=== PATIENT | male | born 1955 | race Caucasian/White ===

== ENCOUNTER 2020-07-10 15:45 | Emergency (ER) | payer OTHER, SELFPAY ==
--- NOTE | ~2020-07-10 | CT_ITS ---
EXAMINATION: CT ABDOMEN AND PELVIS WITHOUT CONTRAST CLINICAL INFORMATION: Left low back and flank pain with question of compression fracture COMPARISON: Chest radiograph 12/05/2006 TECHNIQUE: Multidetector volumetric imaging was performed from the superior aspect of the liver through the pubic symphysis. Sagittal and coronal reformatted images were obtained on the technologist's workstation. This CT examination was performed using dose optimization techniques as appropriate, variously including the following: *Automated exposure control *Adjustment of mA and/or kV according to patient size (this includes techniques or standardized protocols for targeted exams where dose is matched to indication/reason for exam; i.e. extremities or head) *Use of iterative reconstruction technique DLP: 609 mGy-cm FINDINGS: LUNG BASES: The visualized lung bases are unremarkable. LIVER, GALLBLADDER, AND BILIARY TREE: The liver is normal in size, shape, and attenuation. No focal hepatic lesion or biliary ductal dilatation is present. The gallbladder is unremarkable with no evidence of radiopaque gallstones, gallbladder wall thickening, or obvious pericholecystic inflammatory changes. PANCREAS: Unremarkable. SPLEEN: Unremarkable. ADRENAL GLANDS: Unremarkable. KIDNEYS AND URETERS: The kidneys are normal in size, shape, and attenuation. No hydronephrosis, hydroureter, or calculi seen. No perinephric stranding. BLADDER: Unremarkable. GASTROINTESTINAL TRACT: Sigmoid diverticula without diverticulitis. The small and large bowel are otherwise unremarkable. The appendix is unremarkable. ABDOMINAL WALL: No significant hernia is appreciated. LYMPH NODES: No retroperitoneal lymphadenopathy. VASCULAR: Some minimal calcific plaque present in the aorta and iliac vessels without aneurysm. PELVIC VISCERA: Prostate and seminal vesicles are unremarkable. OSSEOUS STRUCTURES: Degenerative changes are present in the spine. Schmorl's nodes are present on the inferior endplate of L2, the superior endplate of L3, and the inferior endplates of L4 and L5. No acute fractures are seen. No chronic compression fractures are seen. Degenerative changes are most marked at L4-L5. CT/CT abdomen pelvis wo con IMPRESSION: 1. Degenerative changes present in the spine as described above. No acute fractures. 2. Incidental note made of sigmoid diverticula and other findings described above.
[2020-07-10 15:50] VITALS: BP 170/80; PULSE 60; O2SAT 97
[2020-07-10 15:58] VITALS: BP 170/79; PULSE 60; RESP 16; TEMP 36.6; O2SAT 97; BMI 26.4
--- NOTE | 2020-07-10 16:05 | ED_ITS ---
HPI - Back Pain/Injury General Chief Complaint: Back Pain/Injury Stated Complaint: back spasms Time Seen by Provider: 07/10/20 16:05 History of Present Illness HPI Narrative: Patient complains of left-sided low back pain shooting down into his toes intermittently which started yesterday and got much worse today, he has had episodes of sciatica in the past but this is more severe he recalls no recent injury, no numbness or weakness no changes to bowel or bladder no chest pain no abdominal pain no fall Related Data Previous Rx's Medication Instructions Recorded cyclobenzaprine 10 mg PO TID PRN #20 tab 07/10/20 ibuprofen 600 mg PO Q6H PRN #20 tab 07/10/20 oxycodone 5 mg PO Q6H PRN #20 cap 07/10/20 prednisone 60 mg PO DAILY 4 Days #12 tab 07/10/20 Allergies Allergy/AdvReac Type Severity Reaction Status Date / Time No Known Allergies Allergy Unverified 12/27/19 15:17 Review of Systems Review of Systems: Positive for left-sided back pain radiating to left toes Negatives are no fever no chills no dizziness no weakness no numbness no loss of sensation no changes to bowel or bladder no injury, no headache no neck pain no chest pain no abdominal pain no nausea or vomiting no dysuria no frequency no incontinence no skin rash Yes all other systems are reviewed and are negative FOR[facility]LY [facility] Past Medical History Source: nursing notes reviewed Medical History (Updated 07/11/20 @ 00:01 by Anibal Barbosa) Chronic back pain HTN (hypertension) Social History Social History Smoking Status: Current some day smoker Smoked in Last 30 Days: Yes Use of substances other than those prescribed or required for medical reasons: No Advance Directives: No Advance Directives Information Provided: No Physical Exam Vital Signs: Vital Signs: Last Vital Signs Temp 97.9 F 07/10/20 15:58 Pulse 60 07/10/20 15:58 Resp 16 07/10/20 15:58 BP 170/79 H 07/10/20 15:58 Pulse Ox 97 07/10/20 15:58 Body Mass Index 26.4 Uncomfortable appearing but no acute distress A&O x3, and cooperative Head is normocephalic atraumatic Neck is supple and nontender The chest is clear to auscultation bilaterally, no chest wall tenderness The heart rate minute regular no murmur Abdomen soft nontender Extremities full range of motion x4 Skin no rashes Neuro no focal weakness no focal sensory deficit, gait is normal can walk on toes can walk on heels can not squat, balance is normal, speech and comprehension are normal Course Course Course Narrative: Patient with a sciatica attack that is similar to many prior but more painful than normal but with no neurologic deficit is treated with analgesic, improved and is discharged with analgesics medication to follow with his doctor As he has not had any imaging and his pain was more severe than normal I did a CT abdomen and pelvis to rule out mass, aortic enlargement, compression fracture , kidney stones and there were no acute abnormalities in the scan and patient will follow with his primary doctor Discharge Plan Discharge Clinical Impression: Sciatica Patient Disposition: Home, Self-Care Additional Instructions: We treated you with muscle relaxer and pain medicine at with some improvement The goal is to reduce discomfort enough that you can function and do light activity You can supplement the pain medicines with [id number] Tylenol take 2 extra-strength Tylenol 3 times a day, use Motrin as your baseline with the Tylenol because they are not sedating If needed take the oxycodone and Flexeril which will make you sleepy If needed you could take up to 3 oxycodone, 15 mg every 6 hours We started prednisone which in many cases helps reduce inflammation around the nerve and after 24 hours may reduce pain Follow with primary doctor for physical therapy, massage is often helpful Return any time any worse condition, especially if you develop any muscle weakness or incontinence Prescriptions: New oxycodone 5 mg capsule 5 mg PO Q6H PRN (Reason: pain) Qty: 20 RF: 0 cyclobenzaprine 5 mg tablet 10 mg PO TID PRN (Reason: muscle spasm) Qty: 20 RF: 0 prednisone 20 mg tablet 60 mg PO DAILY 4 Days Qty: 12 RF: 0 ibuprofen 600 mg tablet 600 mg PO Q6H PRN (Reason: pain) Qty: 20 RF: 0 Stand Alone Forms: Work/School Release Interventions: ED Discharge Assessment Last Done: 07/10/20 18:51 Discharge Date/Time: 07/10/20 18:54
[2020-07-10] MEDS: diazePAM 5 MG TABLET PO ×2 (17:12)
[2020-07-10] MEDS: oxyCODONE HCl Immed Release 5 MG TABLET PO ×3 (17:13→18:23)
[2020-07-10] MEDS: Ketorolac Tromethamine 15 MG/ML VIAL IV (17:14)
[2020-07-10] MEDS: predniSONE 20 MG TABLET 60 MG PO (18:22)
[2020-07-10] MEDS: Cyclobenzaprine HCl 5 MG TABLET PO (18:23)
--- NOTE | 2020-07-10 18:49 | PC.NURSE ---
JEFERSON CAMPOS SPOKE WITH PT ABOUT WAITING TO SEEN IF PAIN MEDICATION TAKE EFFECT AND PT DECLINED WAITING AND WANTED TO GO HOME WITH WORK NOTE AND PAIN MEDICATION PRESCRIPTIONS.
== END 2020-07-10 18:54 | disposition home or self-care (01) ==
PROVIDERS: Emergency Provider Emergency Medicine
DX: M54.42 Lumbago with sciatica, left side (principal); I10 Essential (primary) hypertension; F17.200 Nicotine dependence, unspecified, uncomplicated
CPT/HCPCS: 74176; 96374; 99284; J1885

== ENCOUNTER 2021-01-16 10:12 | Emergency (ER) | payer MEDICARE, OTHER, SELFPAY ==
--- NOTE | 2021-01-16 | ECG_ITS ---
Test Reason : CHEST PAIN Blood Pressure : / mmHG Vent. Rate : 065 BPM Atrial Rate : 065 BPM P-R Int : 152 ms QRS Dur : 094 ms QT Int : 418 ms P-R-T Axes : 074 048 016 degrees QTc Int : 434 ms Sinus rhythm with occasional Premature ventricular complexes Voltage criteria for left ventricular hypertrophy Abnormal ECG No previous ECGs available Referred By: Amelia Motta Electronically Signed By:ROD DARLING MD
[2021-01-16 10:20] VITALS: BP 146/87; PULSE 59; RESP 16; TEMP 36.7; O2SAT 97; BMI 25.7
[2021-01-16 10:38] LABS: Hematocrit 42.2 % (42-52); Hemoglobin 14.1 g/dl (14.0-18.0); Mean Corpuscular HGB Conc 33.4 g/dl (31.0-36.0); Mean Corpuscular Hemoglobin 30.6 pg (27.0-33.0); Mean Corpuscular Volume 91.5 fL (80-98); Mean Platelet Volume 10.6 fL (9.4-12.4); Platelet Count 311 X10*3/uL (160-400); Red Blood Count 4.61 X10*6/uL (4.60-5.80); Red Cell Distribution Width 13.9 % (11.0-16.0); White Blood Count 7.2 X10*3/uL (4.8-10.8)
--- NOTE | 2021-01-16 10:41 | ECG_ITS ---
Test Reason : CHEST PAIN Blood Pressure : / mmHG Vent. Rate : 067 BPM Atrial Rate : 070 BPM P-R Int : 156 ms QRS Dur : 092 ms QT Int : 426 ms P-R-T Axes : 075 053 014 degrees QTc Int : 450 ms Normal sinus rhythm with frequent Premature ventricular complexes Moderate voltage criteria for LVH, may be normal variant Abnormal ECG When compared with ECG of 16-JAN-2021 10:21, Premature ventricular complexes are now more frequent Referred By: Amelia Motta Electronically Signed By:ROD DARLING MD
--- NOTE | 2021-01-16 10:43 | ED.CHESTPAIN ---
HPI - Chest Pain General Chief Complaint: Chest Pain Stated Complaint: chest pain resolved Time Seen by Provider: 01/16/21 10:41 History of Present Illness HPI narrative: Patient is 65-year-old male presents today with having chest pain burning sensation in middle of his chest with exertion. Patient had an episode of chest burning while he was ice skating. Subsequently had a 2nd episode of chest burning [place]. Today he was worried his heart rate may be slightly elevated. Patient decided to walk up a hill at a brisk pace. Subsequently developed burning sensation to his chest. Positive shortness of breath. Positive lightheadedness and almost passed out. Patient fell to the ground and scraped his knee. Denies any loss of consciousness but came very close. No coughing or congestion or upper respiratory symptoms. Patient is immunized for COVID. Patient has a history of hypertension, hypercholesterol, smoking. Never had a heart attack. Never had diabetes. No stress test done in the past. Related Data Home Medications Medication Instructions Recorded Confirmed Plant Sterol 1 tab PO DAILY 01/16/21 01/16/21 biotin 1 tab PO BEDTIME 01/16/21 01/16/21 multivitamin 1 tab PO BEDTIME 01/16/21 01/16/21 omega-3 fatty acids 1,250 mg PO BEDTIME 01/16/21 01/16/21 saw palmetto 1 tab PO BEDTIME 01/16/21 01/16/21 Allergies Allergy/AdvReac Type Severity Reaction Status Date / Time No Known Allergies Allergy Unverified 12/27/19 15:17 Review of Systems Review of Systems: Positive chest pain shortness of breath Positive near syncopal episode No bloody stool No changes in medication Patient is actually on no medication All systems reviewed otherwise negative [facility] Past Medical History Attestation statement: The following information was validated with the patient. Medical History Chronic back pain HTN (hypertension) Social History Social History Alcohol intake: never Patient Tobacco Use Status: Never used Tobacco Use of substances other than those prescribed or required for medical reasons: No Advance Directives: No Advance Directives Information Provided: Yes Physical Exam Vital Signs: Vital Signs: Last Vital Signs Temp 98.0 F 01/16/21 11:04 Pulse 57 01/16/21 11:04 Resp 19 01/16/21 11:04 BP 150/90 H 01/16/21 11:04 Pulse Ox 98 01/16/21 11:04 Body Mass Index 25.7 Appearance: Alert. Oriented X3. No acute distress. Eyes: Pupils equal, round and reactive to light. ENT: Pharynx normal. Neck: Normal inspection. Neck supple. No lymph nodes noted. No crepitus CVS: Normal heart rate and rhythm. Pulses normal. Normal S1 and S2 Respiratory: No respiratory distress. Breath sounds normal. No Wheezing. No rales Abdomen: Soft and nontender. No rigidity. No distention. good BS x4 Skin: Skin warm and dry. Normal skin color. Normal skin turgor. Extremities: No lower extremity edema. Neurovascular intact to all extremities. No Lacerations. No Rash Neuro: Oriented X 3. No motor deficit. No sensory deficit. Moving all extermities. No slurred speech MDM - Chest Pain MDM Narrative Medical decision making narrative: EKG showed a sinus pattern heart rate was 60 OH QRS QT within normal limits there is significant peak T-waves in V3 and V4. Will repeat an EKG in approximately 10 15 minutes. Repeat EKG done at 10:55 was unchanged. Shows a sinus pattern heart rate is 60 OH QRS QT within normal limits the PT waves about the same as previous EKG done approximately 25 minutes ago Positive chest pain with exertion, positive near-syncope. significant cardiac risk factor. Patient's 1st set of troponin is negative. Will admit for further evaluation. Patient's case discussed with cardiology. Given patient's chest pain with exertion near syncopal episode will take patient to the pit laborer for further evaluation. Risk and benefit of transfer discussed with patient. Patient going to [facility] possible cardiac catheterization Medical Records Data Attestation: I reviewed the patient's medical records. Lab Data Attestation: I reviewed the patient's lab results. Result diagrams: 01/16/21 10:01/16/21 11:13 Labs: Lab Results 01/16/21 01/16/21 01/16/21 Range/Units 10: 10: 11:03 WBC 7.2 (4.8-10.8) X10*3/uL RBC 4.61 (4.60-5.80) X10*6/uL Hgb 14.1 (14.0-18.0) g/dl Hct 42.2 (42-52) % MCV 91.5 (80-98) fL MCH 30.6 (27.0-33.0) pg MCHC 33.4 (31.0-36.0) g/dl RDW 13.9 (11.0-16.0) % Plt Count 311 (160-400) X10*3/uL MPV 10.6 (9.4-12.4) fL Absolute Nucleated RBC 0.000 (0.0-0.012) X10*3/uL Nucleated RBC % (auto) 0.0 (0.0-0.2) /100WBC PT (9.9-13.0) SEC INR (0.9-1.1) PTT (Heparin Protocol) (53-77.9) SEC Sodium (135-145) mmol/L Potassium (3.3-5.1) mmol/L Chloride (96-108) mmol/L Carbon Dioxide (22-29) mmol/L Anion Gap (12-20) BUN (9-16) mg/dL Creatinine (0.5-1.4) mg/dL Estim Creat Clear Calc Estimated GFR Random Glucose (60-115) mg/dL Calcium (8.4-10.2) mg/dL Total Bilirubin (0.0-1.0) mg/dL AST (5-37) U/L ALT (0-40) U/L Alkaline Phosphatase (39-117) U/L Troponin I High Sens 10.0 (<3.5-35.0) ng/L Total Protein (6.5-8.0) g/dL Albumin (3.5-5.0) g/dL COVID-19 (JOHANNE) Negative (Negative) COVID-19 Clin Com See Note 01/16/21 01/16/21 Range/Units 11:13 12:35 WBC (4.8-10.8) X10*3/uL RBC (4.60-5.80) X10*6/uL Hgb (14.0-18.0) g/dl Hct (42-52) % MCV (80-98) fL MCH (27.0-33.0) pg MCHC (31.0-36.0) g/dl RDW (11.0-16.0) % Plt Count (160-400) X10*3/uL MPV (9.4-12.4) fL Absolute Nucleated RBC (0.0-0.012) X10*3/uL Nucleated RBC % (auto) (0.0-0.2) /100WBC PT 11.4 (9.9-13.0) SEC INR 1.0 (0.9-1.1) PTT (Heparin Protocol) 29.2 L (53-77.9) SEC Sodium 141 (135-145) mmol/L Potassium 4.5 (3.3-5.1) mmol/L Chloride 107 (96-108) mmol/L Carbon Dioxide 25 (22-29) mmol/L Anion Gap 14 (12-20) BUN 13 (9-16) mg/dL Creatinine 0.83 (0.5-1.4) mg/dL Estim Creat Clear Calc 91.9 Estimated GFR > 60 Random Glucose 109 (60-115) mg/dL Calcium 9.5 (8.4-10.2) mg/dL Total Bilirubin 0.4 (0.0-1.0) mg/dL AST 38 H (5-37) U/L ALT 33 (0-40) U/L Alkaline Phosphatase 45 (39-117) U/L Troponin I High Sens (<3.5-35.0) ng/L Total Protein 7.3 (6.5-8.0) g/dL Albumin 4.5 (3.5-5.0) g/dL COVID-19 (JOHANNE) (Negative) COVID-19 Clin Com Critical Care Time Critical Care Time Total Critical Care Time: 40 Attestation: I have personally provided 40 minutes of critical care time exclusive of time spent on separately billable procedures. Time includes review of lab data, radiology results, discussion with consultants, and monitoring for potential decompensation. Interventions were performed as documented above Discharge Plan Discharge Clinical Impression: Unstable angina pectoris, Near syncope Patient Disposition: Xfer [facility] Prescriptions: No Action multivitamin Tablet 1 tab PO BEDTIME RF: 0 Fish Oil Capsule 1,250 mg PO BEDTIME RF: 0 Plant Sterol 1 tab PO DAILY RF: 0 biotin 1 tab PO BEDTIME RF: 0 saw palmetto 1 tab PO BEDTIME RF: 0
[2021-01-16] MEDS: Aspirin 81 MG TAB.CHEW 324 MG PO (10:55)
[2021-01-16 11:04] VITALS: BP 150/90; PULSE 57; RESP 19; TEMP 36.7; O2SAT 98
[2021-01-16 11:25] LABS: COVID-19 Test Negative (Negative); IDNOW Serial# 9DD0AD1C
--- NOTE | 2021-01-16 11:28 | PHA.MEDREC ---
Pharmacy Consult ? Medication Reconciliation Pharmacy has completed the medication reconciliation. Patient reports that he only takes supplements. Melonie Dillard, GeorgieD
[2021-01-16 11:38] LABS: Alanine Aminotransferase 33 U/L (0-40); Albumin Level 4.5 g/dL (3.5-5.0); Alkaline Phosphatase 45 U/L (39-117); Anion Gap 14 (12-20); Aspartate Amino Transferase 38 U/L (5-37); Bilirubin Total 0.4 mg/dL (0.0-1.0); Blood Urea Nitrogen 13 mg/dL (9-16); Calcium 9.5 mg/dL (8.4-10.2); Carbon Dioxide 25 mmol/L (22-29); Chloride 107 mmol/L (96-108); Creatinine Clr Calc Pharmacy 91.9; Estimated Glomerular Filt Rate > 60; Glucose Random 109 mg/dL (60-115); Potassium 4.5 mmol/L (3.3-5.1); Sodium 141 mmol/L (135-145); Total Protein 7.3 g/dL (6.5-8.0)
[2021-01-16 12:49] LABS: Prothrombin Time 11.4 SEC (9.9-13.0)
[2021-01-16 12:52] LABS: PTT Heparin Drip 29.2 SEC (53-77.9)
--- NOTE | 2021-01-16 13:01 | PC.NURSE ---
pt accepted [facility] [employer] 7 room 20 nurse-nurse [phone]
[2021-01-16 13:24] VITALS: BMI 26.7
[2021-01-16] MEDS: Heparin Sodium,Porcine/1/2NS 25,000 UNIT/250 ML IV.SOLN 8.39 UNIT IVCONT (13:29)
[2021-01-16] MEDS: Heparin Sodium,Porcine 5,000 UNIT/ML VIAL 3400 UNIT IVPUSH (13:37)
== END 2021-01-16 14:46 | disposition short-term general hospital (02) ==
PROVIDERS: Emergency Provider Emergency Medicine Emergency Medical Services; PCP Internal Medicine
DX: I20.0 Unstable angina (principal); R55 Syncope and collapse; I10 Essential (primary) hypertension; Z20.822 Contact with and (suspected) exposure to COVID-19
CPT/HCPCS: 36415; 80053; 84484; 85027; 85610; 85730; 87635; 93005; 96365; 96366; 96375; 99284; 99291

== ENCOUNTER 2022-04-19 18:52 | Emergency (ER) | payer MEDICARE, OTHER, SELFPAY ==
[2022-04-19 19:34] VITALS: BP 131/74; PULSE 56; RESP 16; O2SAT 95; BMI 22.9
--- NOTE | 2022-04-19 20:03 | ED_ITS ---
HPI - Animal Bite General Chief Complaint: Animal Bite Stated Complaint: dog bite Time Seen by Provider: 04/19/22 19:40 Source: patient Mode of arrival: ambulatory Limitations: no limitations History of Present Illness HPI narrative: Patient comes to the emergency room complaining of a dog bite to the face on the left hand. Patient states that the dog is his talk, is up-to-date with immunizations. The patient states that the dog was lying down, the patient lead over the dog and got his face to close to the dog's head and the dog snapped and bit him in the face. Patient states that he tried pulling the dog off his face and also bit him on the left-hand. Patient states that he does not know when he got his last tetanus shot. Related Data Home Medications Medication Instructions Recorded Confirmed Plant Sterol 1 tab PO DAILY 01/16/21 01/16/21 biotin 1 tab PO BEDTIME 01/16/21 01/16/21 multivitamin 1 tab PO BEDTIME 01/16/21 01/16/21 omega-3 fatty acids 1,250 mg PO BEDTIME 01/16/21 01/16/21 saw palmetto 1 tab PO BEDTIME 01/16/21 01/16/21 Previous Rx's Medication Instructions Recorded amoxicillin 500 mg-potassium 1 tab PO BID #13 tabs 04/19/22 clavulanate 125 mg tablet (Augmentin) Allergies Allergy/AdvReac Type Severity Reaction Status Date / Time No Known Allergies Allergy Unverified 12/27/19 15:17 Review of Systems Review of Systems: Constitutional : No Weight loss, No Fever, No Chills, No Night Sweats, No Fatigue, No Malaise ENT/Mouth : No Hearing loss, No Ear Pain, No Nasal Congestion, No Sinus Pain, No Hoarseness, No sore throat, No Rhinorrhea, No Swallowing Difficulty Eyes: No Eye Pain, No Swelling, No Redness, No Foreign Body, No Discharge, No Vision Changes Cardiovascular : No Chest Pain, No SOB, No Dyspnea on Exertion, No Orthopnea, No Edema, No Palpitations Respiratory : No Cough, No Sputum, No Wheezing, No Smoke Exposure, No Dyspnea Gastrointestinal : No Nausea, No Vomiting, No Diarrhea, No Constipation, No abdominal Pain, No Hematochezia, No Melena Genitourinary : no irregular bleeding, No Dysuria, No Urinary Frequency, No Hematuria, No Urinary Incontinence, No Urgency, No Flank Pain, No Urinary Flow Changes, No Hesitancy Musculoskeletal : No joint pain, No Myalgias, No Joint Swelling Skin : Complaining of a dog bite to the right side of the face and left hand Neuro : No Weakness, No Numbness, No Paresthesias, No Loss of Consciousness, No Dizziness, No Headache Psych : No Anxiety/Panic, No Depression, No SI/HI/AH/VH, No Social Issues, Heme/Lymph: No Bruising, No Bleeding,No Lymphadenopathy Endocrine : No Polyuria, No Polydipsia, No Temperature Intolerance [facility] Past Medical History Medical History Chronic back pain HTN (hypertension) Social History Social History Alcohol intake: never Patient Tobacco Use Status: Never used Tobacco Advance Directives: No Advance Directives Information Provided: No Physical Exam ED Vital Signs: Vital Signs - 24 hr 04/19/22 19:34 04/19/22 20:09 Temperature 98.1 F Pulse Rate 56 56 Respiratory Rate 16 Blood Pressure 131/74 128/62 Pulse Oximetry 95 97 Oxygen Delivery Method Room Air Room Air BMI result Body Mass Index 22.9 Const Other: Appearance: Alert. Oriented X3. No acute distress. Eyes: Pupils equal, round and reactive to light. ENT: Pharynx normal. Neck: Normal inspection. Neck supple. No lymph nodes noted. No crepitus CVS: Normal heart rate and rhythm. Pulses normal. Normal S1 and S2 Respiratory: No respiratory distress. Breath sounds normal. No Wheezing. No rales Abdomen: Soft and nontender. No rigidity. No distention. Skin: Doc scratch bites to the left hand on the dorsum, no puncture wound. Patient has AU shaped 2 cm laceration/dog bite to the right side of the face above the right lip, not crossing the vermilion border Extremities: No lower extremity edema. No Lacerations. No Rash Neuro: Oriented X 3. No motor deficit. No sensory deficit. Moving all extremities. No slurred speech. CN 2 through 12 grossly intact Psych: calm, cooperative, normal affect Course Course Course Narrative: Patient will be getting p.o. Augmentin, Tdap and sutures Medications Administered Discontinued Medications Generic Name Dose Route Start Last Admin Trade Name Freq PRN Reason Stop Dose Admin Amoxicillin/Clavulanate Potassium 875 mg 04/19/22 20:02 04/19/22 20:11 Amoxicillin/Potassium Clav 875 Mg Tablet PO 04/19/22 20:03 875 mg ONCE ONE Administration Diphtheria/Tetanus/Acell Pertussis 0.5 ml 04/19/22 20:02 04/19/22 20:10 Diphth,Pertus(Acell),Tet Adult 0.5 Ml Syringe IM 04/19/22 20:03 0.5 ml .ONCE ONE Administration Medical Decision Making Differential Diagnosis Differential Diagnoses: The differential diagnosis associated with the presentation includes (Dog bite) Procedures Laceration Laceration 1: Site: face Side (If applicable): right Size (cm): 2 Description: stellate, flap and irregular Depth: simple, single layer Local Anesthetic: lidocaine 1% Amount of anesthesia used (mL): 6 Pre-repair: wound explored and irrigated extensively Skin layer closed with: nylon Size (cm): 6-0 Number of sutures: 8 Technique: simple, interrupted Discharge Plan Discharge Clinical Impression: Dog bite Patient Disposition: Home, Self-Care Instructions: Animal Bite (ED) Additional Instructions: Your stitches need to be removed in 7-10 days. If you see any signs of infection such as redness, pus drainage, fever or chills, please return immediately to the emergency room. Please follow-up with your primary care physician tomorrow. If you have any worsening or new symptoms, please return to the emergency room or call 911 Prescriptions: New amoxicillin-pot clavulanate [Augmentin] 500-125 mg tablet 1 tab PO BID Qty: 13 0RF No Action multivitamin Tablet 1 tab PO BEDTIME Fish Oil Capsule 1,250 mg PO BEDTIME Plant Sterol 1 tab PO DAILY biotin 1 tab PO BEDTIME saw palmetto 1 tab PO BEDTIME
[2022-04-19 20:09] VITALS: BP 128/62; PULSE 56; TEMP 36.7; O2SAT 97
[2022-04-19] MEDS: Diphth,Pertus(ACell),Tet Adult 0.5 ML SYRINGE IM (20:10)
[2022-04-19] MEDS: Amoxicillin/Potassium Clav 875 MG TABLET PO (20:11)
== END 2022-04-19 21:35 | disposition home or self-care (01) ==
PROVIDERS: Emergency Provider Emergency Medicine
DX: S01.85XA Open bite of other part of head, initial encounter (principal); S61.452A Open bite of left hand, initial encounter; W54.0XXA Bitten by dog, initial encounter; Y93.89 Activity, other specified; Y92.019 Unspecified place in single-family (private) house as the place of occurrence of the external cause; Y99.9 Unspecified external cause status; Z23 Encounter for immunization
CPT/HCPCS: 12011; 90471; 90715; 99283; 99284

== ENCOUNTER 2022-08-24 17:40 | Emergency (ER) | payer MEDICARE, OTHER, SELFPAY ==
--- NOTE | ~2022-08-24 | XR_ITS ---
EXAMINATION: XR SHOULDER, RIGHT CLINICAL INFORMATION: Right shoulder pain status post fall COMPARISON: None available. TECHNIQUE: Four views of the right shoulder. FINDINGS: No fracture or dislocation. The glenohumeral joint is well aligned. Marginal osteophytes present. The acromioclavicular joint is intact with mild hypertrophic degenerative change. The visualized lung is clear. The visualized ribs are intact. XR/XR shoulder RT min 2V IMPRESSION: No acute fracture or malalignment. Mild to moderate degenerative changes.
--- NOTE | ~2022-08-24 | CT_ITS ---
EXAMINATION: CT CHEST WITHOUT CONTRAST CLINICAL INFORMATION: Fall backwards. Right scapular pain. Evaluate for a scapular fracture, rib fracture. COMPARISON: Right shoulder radiographs done earlier the same day. Chest radiograph dated 12/05/2006. TECHNIQUE: Multidetector volumetric CT imaging of the chest was done. Axial MIP volume rendering provided. Sagittal and coronal reformatted images were obtained. This CT examination was performed using dose optimization techniques as appropriate, variously including the following: *Automated exposure control. *Adjustment of mA and/or kV according to patient size (this includes techniques or standardized protocols for targeted exams where dose is matched to indication/reason for exam; i.e. extremities or head). *Use of iterative reconstruction technique. DLP: 339 mGy-cm FINDINGS: TILE INSTALLER: Unremarkable. LUNGS: The lungs are clear with no evidence of inflammation or nodules. MEDIASTINUM: No cardiomegaly. No pericardial effusion. No thoracic aortic dilatation. Thoracic aortic atherosclerotic calcifications. No significant mediastinal or hilar lymphadenopathy. Unremarkable thyroid. CORONARY ARTERY CALCIFICATION: Present. PLEURA: There is no pleural effusion. No pleural mass or thickening. AXILLA: No lymphadenopathy. UPPER ABDOMEN: Unremarkable. OSSEOUS STRUCTURES: No acute fracture. The scapula is intact. No dislocation. Moderate acromioclavicular osteoarthritis. Moderate glenohumeral osteoarthritis. CT/CT chest wo IV con IMPRESSION: 1. No acute fracture. No dislocation. 2. Moderate acromioclavicular and glenohumeral osteoarthritis. 3. No pulmonary nodule, mass, or airspace consolidation. Fleischner guidelines were followed.
--- NOTE | 2022-08-24 19:06 | ED.GENADULT ---
HPI - General Adult General Chief complaint: General Medical Stated complaint: Allergic reaction Time Seen by Provider: 08/24/22 20:53 Source: patient Mode of arrival: ambulatory Limitations: no limitations History of Present Illness HPI narrative: 67-year-old male who presents emergency department for evaluation of pruritic rash on his arms, face and lower extremities the patient states that he was working with a wood epoxy repair holes in a wall named [employer] any also used a citrus base and cream in order to remove a proxy from his hands. He states that he used these products on Tuesday08/20/2022, 4 days prior to evaluation. He states the rash started the next day on his arms then spread to his face and legs. The rash is pruritic and painful. He denied systemic symptoms such as fever, chills, rhinorrhea, sore throat, cough, chest pain or shortness of breath. The patient also presents today for a right scapula/shoulder injury. The patient states that he was playing hockey and was skating on the ice backwards when he ran into a device on the ice to stop ox causing him to trip and fall backwards. He states that he was wearing pads and helmet and his helmet flew off his head. He denied any head injury or neck injury, denies headache, nausea or vomiting. He is complaining of pain in his right scapula but he does not remember injuring his scapula. The pain is a constant, 8/10 which is worse with movement. He denied pleuritic pain or shortness of breath. Rapid medical examination note reviewed by me. Related Data Home Medications Medication Instructions Recorded Confirmed Plant Sterol 1 tab PO DAILY 01/16/21 01/16/21 biotin 1 tab PO BEDTIME 01/16/21 01/16/21 multivitamin 1 tab PO BEDTIME 01/16/21 01/16/21 omega-3 fatty acids 1,250 mg PO BEDTIME 01/16/21 01/16/21 saw palmetto 1 tab PO BEDTIME 01/16/21 01/16/21 Previous Rx's Medication Instructions Recorded amoxicillin 500 mg-potassium 1 tab PO BID #13 tabs 04/19/22 clavulanate 125 mg tablet (Augmentin) prednisone 10 mg tablet 10 mg PO DIRECTED #84 tabs 08/24/22 Allergies Allergy/AdvReac Type Severity Reaction Status Date / Time No Known Allergies Allergy Unverified 12/27/19 15:17 Review of Systems Review of Systems: Yes all other systems are reviewed and are negative [facility] Past Medical History [facility] Narrative: Past medical history: Reviewed below, coronary disease with stent 01/16/2021, hypertension, hyperlipidemia. Social history: He denies tobaccol and drug use. He drinks 1 or 2 beers per day. Medical History Chronic back pain HTN (hypertension) Social History Social History Alcohol intake: never Patient Tobacco Use Status: Never used Tobacco Advance Directives: No Advance Directives Information Provided: Yes Physical Exam ED Vital Signs: Vital Signs - 24 hr 08/24/22 19:08 08/24/22 20:27 Temperature 97.9 F 97.6 F Pulse Rate 59 67 Respiratory Rate 16 16 Blood Pressure 147/88 H 150/72 H Pulse Oximetry 100 96 Oxygen Delivery Method Room Air BMI result Body Mass Index 22.6 Const Other: Awake, alert, male patient, pleasant, cooperative he does have a macular papular rash on his face, arms and legs. HENME Head: Yes normal to inspection, Yes normocephalic and Yes atraumatic Ears: external ears normal General nose exam: Normal external nose present Face and sinus: Yes normal facial exam Mouth: Normal oral and palatal mucosa present Throat: Yes posterior oropharynx normal Eyes General: appearance normal, both eyes and all related structures Pupils: Equal, round and reactive pupils present Neck Neck: Yes normal visual inspection, Yes no lymphadenopathy, Yes trachea midline and Yes supple Chest Chest palpation & inspection: normal inspection of the chest and normal palpation of entire chest wall Resp Effort & Inspection: normal respiratory effort and able to speak in complete sentences Auscultation: clear to auscultation bilaterally Cardio Rate: regular rate Rhythm: regular rhythm Heart sounds: S1 normal heart sound present, S2 normal heart sound present and no murmurs GI Inspection: Yes normal to inspection Palpation (GI): Soft to palpation, nontender and no guarding Auscultation: normal bowel sounds General: Yes no CVA tenderness Back/Spine/Pelvis Other: Patient has no point tenderness with palpation of his cervical thoracic or lumbar/sacral vertebrae. Back: no CVA tenderness Skin Other: Patient has a macular papular rash to his face, arms and legs which does not josie, there is no increased warmth. Neuro Cranial nerves: Yes CN's II-XII intact bilaterally and Yes Equal, round and reactive pupils present Cognition (Neuro): normal cognition Motor exam (neuro): 5/5 motor strength present throughout Extrem Other: The patient has limited range of motion of his right shoulder secondary to pain, there is no tenderness with palpation over the proximal humerus or clavicle. He does have tenderness palpation of his right mid scapula. There is no chest wall tenderness in the pain does not change with deep breathing General: Yes normal to inspection Psych Appearance: grossly normal Speech and movement: Normal speech and movement present Affect: normal affect Attitude: cooperative Thought process: Normal thought process present Thought content: Normal thought content present Course Course Course Narrative: This is an RME: Additional HPI, ROS, PE not included below will be deferred to primary provider. 67 [id number], hx of hypertension and heart stent, presenting to the emergency department with complaints of diffuse rash since tuesday and also right shoulder pain since today. He recently was using epoxy and believes he had an allergic reaction to this. Has been taking claritin no longer itchy but rash is not resolving. Maculopapular rash noted to bilateral hands and arms, sparring the palms, and on forehead. Also states that he was playing hockey and fell backwards, striking his right shoulder. Denies hitting hit head during this. He is on ASA, denies being on AC therapy. Plan: labs and xr right shoulder Medications Administered Discontinued Medications Generic Name Dose Route Start Last Admin Trade Name Echo PRN Reason Stop Dose Admin Acetaminophen 975 mg 08/24/22 21:17 08/24/22 21:28 Acetaminophen 325 Mg Tablet PO 08/24/22 21:18 975 mg ONCE STA Administration Prednisone 60 mg 08/24/22 21:17 08/24/22 21:28 Prednisone 20 Mg Tablet PO 08/24/22 21:18 60 mg ONCE ONE Administration Medical Decision Making Medical Decision Making MDM Narrative: 67-year-old male who presents emergency department for evaluation of a nonblanching, macular papular rash involving his face , arms and legs. The rash is painful and pruritic. He has had no concerning findings such as fever, chills, facial swelling, icterus or adenopathy. Patient most likely has an allergic reaction to the epoxy or citrus cream that he used to wash his hands with. Patient will be started on prednisone 60 mg once a day for 7 days and then the prednisone will be tapered off by 10 mg every 2 days. Patient also fell today while ice-skating and does have isolated tenderness over his scapula. Shoulder x-ray is did not reveal a clear fracture therefore I did order a CT scan of the chest to rule out rib fracture versus scapular fracture 2251: My interpretation patient's laboratory evaluation as follows: WBC was normal with no elevation in eosinophiles. PT INR were normal. CMP was normal. X-ray of the right shoulder revealed no acute fracture CT scan of the chest revealed no rib her scapula fracture. The patient's right scapular pain is most likely caused by contusion from his fall on the ice. Patient's rash is consistent with an allergic reaction, at this time there was no evidence for DRESS syndrome but I did warn the patient if he develops systemic symptoms such as fever, chills, fatigue, illness of his eyes or skin, adenopathy then you should return to the emergency department. Patient will be treated prednisone 60 mg once a day and then taper by 1 pill every 2 days. He is advised to take Tylenol for pain. He was advised to avoid the epoxy and citrus hand cream. Differential Diagnosis Rash differential diagnosis includes was advised if not limited to petechiae, DRESS syndrome, allergic reactions, infectious process Scapular pain diagnosis includes but is not limited by scapular fracture, rib fracture, shoulder fracture, contusion Admission/Observation Consideration of admission/observation: Escalation of care including admission/observation considered Lab Data [facility] Lab Attestation statement: I reviewed the patient's lab results. Please see [facility] 08/24/22 19:39 08/24/22 19:39 Labs: Lab Results 08/24/22 08/24/22 08/24/22 Range/Units 19:39 19:39 19:39 WBC 8.8 (4.8-10.8) X10*3/uL RBC 4.38 L (4.60-5.80) X10*6/uL Hgb 13.1 L (14.0-18.0) g/dl Hct 39.7 L (42.0-52.0) % MCV 90.6 (80.0-98.0) fL MCH 29.9 (27.0-33.0) pg MCHC 33.0 (31.0-36.0) g/dl RDW 13.5 (11.0-16.0) % Plt Count 230 (160-400) X10*3/uL MPV 10.8 (9.4-12.4) fL Immature Gran % (Auto) 0.2 (0.0-0.4) % Neut % (Auto) 72.2 (45-73) % Lymph % (Auto) 20.5 (20-40) % Garrard % (Auto) 5.5 (2-11) % Eos % (Auto) 1.0 (0-4) % Baso % (Auto) 0.6 (0-2) % Lymph # (Auto) 1.8 (1.2-4.9) X10*3/uL Garrard # (Auto) 0.5 (0.1-1.2) X10*3/uL Eos # (Auto) 0.1 (0.0-0.4) X10*3/uL Baso # (Auto) 0.1 (0.0-0.2) X10*3/uL Abs Immat Gran (auto) 0.02 (0.00-0.03) X10*3/uL Absolute Neuts (auto) 6.3 (2.0-8.3) x10*3/uL Absolute Nucleated RBC 0.000 (0.0-0.012) X10*3/uL Nucleated RBC % (auto) 0.0 (0.0-0.2) /100WBC PT 12.1 (10.0-13.1) SEC INR 1.1 (0.9-1.1) Sodium 140 (135-145) mmol/L Potassium 4.2 (3.3-5.1) mmol/L Chloride 105 (96-108) mmol/L Carbon Dioxide 26 (22-29) mmol/L Anion Gap 13 (12-20) BUN 16 (9-16) mg/dL Creatinine 0.72 (0.5-1.4) mg/dL Estim Creat Clear Calc 97.8 Estimated GFR > 60 Random Glucose 96 (60-115) mg/dL Calcium 9.5 (8.4-10.2) mg/dL Total Bilirubin 0.6 (0.0-1.0) mg/dL Direct Bilirubin 0.2 (0.0-0.5) mg/dL AST 34 (5-37) U/L ALT 34 (0-40) U/L Alkaline Phosphatase 58 (39-117) U/L Total Protein 6.8 (6.5-8.0) g/dL Albumin 4.4 (3.5-5.0) g/dL Independent Interpretation I performed an independent interpretation of an: Plain X-Ray Interpretation: My independent interpretation of the patient's right shoulder x-ray is as follows: No acute fracture seen Radiology Impression Discussion of test interpretation with radiology: I have reviewed the radiologist's reading. Radiologist Impression: CT chest wo IV con IMPRESSION: 1. No acute fracture. No dislocation. 2. Moderate acromioclavicular and glenohumeral osteoarthritis. 3. No pulmonary nodule, mass, or airspace consolidation. Fleischner guidelines were followed. Dictated By:Miguel Ángel Sheldon MD XR shoulder RT min 2V IMPRESSION: No acute fracture or malalignment. Mild to moderate degenerative changes. Dictated By:Kai Mock MD Discharge Plan Discharge Clinical Impression: Allergic reaction, Injury of right scapular region, Fall from ice-skates, initial encounter Patient Disposition: Home, Self-Care Instructions: Contusion in Adults (ED), General Allergic Reaction (ED) Additional Instructions: Shoulder contusion Discharge Instructions: Take Tylenol (acetaminophen) 500 mg pills, 2 pills every 6 hours as needed for pain. Apply ice for 15 minutes to the area that hurts on your back for 15 minutes. Do this 4-6 times a day to help reduce the pain in your back. Continue with normal activities as tolerated since staying in bed and not moving around will make your pain worse. Please return to the Emergency Department or see your doctor immediately if your symptoms get worse or if you develop any new symptoms that are concerning you. Follow up with your doctor in 2 day. Please read the other printed discharge instructions on contusions in adult . Your skin rash is consistent with an allergic reaction. Take prednisone 10 mg pills, 6 pills once a day for 7 days, then decrease by 1 pill every 2 days until you complete the prescription. While you are taking prednisone, do not take any NSAIDs (Motrin, Advil, ibuprofen, Aleve, naproxen). There is a serious skin reaction called DRESS Syndrome (Drug Reaction Eosinophilia and Systemic Symptoms) that can involve your liver, white blood cells and immune system. Signs of Dress syndrome include fever, chills, fatigue, worsening rash, turning yellow secondary to liver involvement, swollen glands in your neck and peeling skin. If you developed any of these symptoms return to the emergency department. Follow-up with your doctor in 2 days. Please return to the emergency department if your symptoms get worse or if you develop any symptoms that are concerning to you. Prescriptions: New prednisone 10 mg tablet 10 mg PO DIRECTED Qty: 84 0RF Rx Instructions: see taper instructions Day 1-7 take 6 pills, then decrease by 1 pill every two days No Action multivitamin Tablet 1 tab PO BEDTIME Fish Oil Capsule 1,250 mg PO BEDTIME Plant Sterol 1 tab PO DAILY biotin 1 tab PO BEDTIME saw palmetto 1 tab PO BEDTIME amoxicillin-pot clavulanate [Augmentin] 500-125 mg tablet 1 tab PO BID Qty: 13 0RF
[2022-08-24 19:08] VITALS: BP 147/88; PULSE 59; RESP 16; TEMP 36.6; O2SAT 100; BMI 22.6
[2022-08-24 19:57] LABS: MANUAL DIFF FLAG NO
[2022-08-24 20:00] LABS: Basophils Absolute Auto 0.1 X10*3/uL (0.0-0.2); Basophils Percent Auto 0.6 % (0-2); Eosinophils Absolute Auto 0.1 X10*3/uL (0.0-0.4); Hematocrit 39.7 % (42.0-52.0); Hemoglobin 13.1 g/dl (14.0-18.0); Imm Gran Abs Auto 0.02 X10*3/uL (0.00-0.03); Imm Gran Pct Auto 0.2 % (0.0-0.4); Lymphocytes Absolute Auto 1.8 X10*3/uL (1.2-4.9); Lymphocytes Percent Auto 20.5 % (20-40); Mean Corpuscular Hemoglobin 29.9 pg (27.0-33.0); Mean Corpuscular Volume 90.6 fL (80.0-98.0); Mean Platelet Volume 10.8 fL (9.4-12.4); Monocytes Absolute Auto 0.5 X10*3/uL (0.1-1.2); Monocytes Percent Auto 5.5 % (2-11); Neutrophils Absolute Auto 6.3 x10*3/uL (2.0-8.3); Neutrophils Percent Auto 72.2 % (45-73); Platelet Count 230 X10*3/uL (160-400); Red Blood Count 4.38 X10*6/uL (4.60-5.80); Red Cell Distribution Width 13.5 % (11.0-16.0); White Blood Count 8.8 X10*3/uL (4.8-10.8)
[2022-08-24 20:07] LABS: INTERNATIONAL NORM RATIO 1.1 (0.9-1.1); Prothrombin Time 12.1 SEC (10.0-13.1)
[2022-08-24 20:18] LABS: Alanine Aminotransferase 34 U/L (0-40); Albumin Level 4.4 g/dL (3.5-5.0); Alkaline Phosphatase 58 U/L (39-117); Anion Gap 13 (12-20); Bilirubin Direct 0.2 mg/dL (0.0-0.5); Bilirubin Total 0.6 mg/dL (0.0-1.0); Chloride 105 mmol/L (96-108); Creatinine Clr Calc Pharmacy 97.8; Estimated Glomerular Filt Rate > 60; Potassium 4.2 mmol/L (3.3-5.1); Sodium 140 mmol/L (135-145); Total Protein 6.8 g/dL (6.5-8.0)
[2022-08-24 20:22] LABS: Aspartate Amino Transferase 34 U/L (5-37); Blood Urea Nitrogen 16 mg/dL (9-16); Calcium 9.5 mg/dL (8.4-10.2); Carbon Dioxide 26 mmol/L (22-29); Glucose Random 96 mg/dL (60-115)
[2022-08-24 20:27] VITALS: BP 150/72; PULSE 67; RESP 16; TEMP 36.4; O2SAT 96
[2022-08-24] MEDS: predniSONE 20 MG TABLET 60 MG PO (21:28)
[2022-08-24] MEDS: Acetaminophen 325 MG TABLET 975 MG PO (21:28)
== END 2022-08-24 23:11 | disposition home or self-care (01) ==
PROVIDERS: Physician Assistant Medical; Emergency Provider Emergency Medicine Emergency Medical Services
DX: R21 Rash and other nonspecific skin eruption (principal); L29.9 Pruritus, unspecified; T78.40XA Allergy, unspecified, initial encounter; X58.XXXA Exposure to other specified factors, initial encounter; S49.91XA Unspecified injury of right shoulder and upper arm, initial encounter; W22.09XA Striking against other stationary object, initial encounter; M79.601 Pain in right arm; Y93.21 Activity, ice skating; Y92.330 Ice skating rink (indoor) (outdoor) as the place of occurrence of the external cause; Y99.9 Unspecified external cause status
CPT/HCPCS: 36415; 71250; 73030; 80048; 80076; 85025; 85610; 99283; 99284